=== PATIENT | female | born 1940 | race Caucasian/White ===

== ENCOUNTER 2021-05-11 13:24 | Emergency (ER) | payer OTHER, SELFPAY ==
[~2021-05-11] VITALS: Ht 152.4 cm; Wt 59.0 kg
[2021-05-11 13:25] VITALS: BP 133/81
--- NOTE | 2021-05-11 13:30 | NUR ---
PT SENT TO TENT FOR COVID ISOLATION AND MSE.
--- NOTE | 2021-05-11 14:23 | NUR ---
Ann from x-ray called and stated she went out to do x-ray on patient she was not outside or in the tent.
--- NOTE | 2021-05-11 15:09 | NUR ---
PT OUTSIDE OF ER LOBBY REQUESTING A TAXI. PT DOES NOT WANT TO SEE A MEDICAL DOCTOR AT THIS TIME. PT STATES "I WANT TO GO HOME."
--- NOTE | 2021-05-11 15:10 | NUR ---
PATIENT LEFT WITHOUT BEING SEEN BY DR. BOCANEGRA. NO FURTHER CARE PROVIDED FOR PATIENT.
== END 2021-05-11 15:10 | disposition left against medical advice (07) ==
LOC: MED 13:24
DX: Z53.21 Procedure and treatment not carried out due to patient leaving prior to being seen by health care provider (principal)